=== PATIENT | male | born 1985 | race Caucasian/White ===

== ENCOUNTER 2021-03-24 21:21 | Emergency (ER) | payer OTHER, SELFPAY ==
[2021-03-24 21:28] VITALS: BP 158/97; PULSE 88; RESP 18; TEMP 36.8; O2SAT 97; BMI 29.8
--- NOTE | 2021-03-24 21:46 | W.ED.ABDPA2 ---
HPI - Abdominal Pain General: Chief Complaint: Abdominal Pain Stated Complaint: abd pain Time Seen by Provider: 03/24/21 21:37 Source: patient Mode of arrival: ambulatory Limitations: no limitations History of Present Illness: HPI narrative: 36-year-old male states has been having abdominal pain over the last 7 to 8 months. He states he had multiple ER visits back in September and had two CAT scans back in September and all the scans were normal. He states his PCP is recently tried to set him up with a referral to GI for EGD and colonoscopy. He states that over the last week his pain is worsened and has been constant nature. He states this is a diffuse cramping pain. Denies any vomiting diarrhea. Denies any worsening improving factors. Associated Symptoms: Denies chills, dysuria and fever(s) Review of Systems Const: Denies: fever(s), chills, body aches or change in appetite Eyes: Denies: blurry vision or eye discomfort ENMT: Denies: throat pain or dental pain Card: Denies: chest pain Resp: Denies: dyspnea GI: Reports: abdominal pain : Denies: dysuria Musc: Denies: neck pain or back pain Skin/Breast: Denies: rash Neuro: Denies: headache(s) Psych: Denies: depression Abdirahman/Lymph: Denies: easy bruising All/Imm: Denies: urticaria Physical Exam Const: COMMON NORMALS: no acute distress, patient oriented x3 and healthy appearing HENMT: COMMON NORMALS: normocephalic and atraumatic HEAD & SCALP: normocephalic and atraumatic Eye: COMMON NORMALS: Equal, round and reactive pupils present and EOMs intact bilaterally PUPIL: Yes Equal, round and reactive pupils present Neck/C-Spine: COMMON NORMALS: full ROM and supple Chest: COMMONS NORMALS: normal inspection of the chest and normal palpation of entire chest wall Resp: COMMON NORMALS: normal respiratory effort, No retractions, No use of accessory muscles and clear to auscultation bilaterally AUSCULTATION: clear to auscultation bilaterally Cardio: COMMON NORMALS: regular rate, regular rhythm and No murmurs present (Cardio) RATE: regular rate RHYTHM: regular rhythm GI: COMMON NORMALS: Normal to inspection, nondistended, normoactive bowel sounds present, Soft to palpation, non-tender and no masses PALPATION: Yes Soft to palpation Extremity: COMMON NORMALS: normal to inspection and full ROM Neuro: COMMON NORMALS: patient oriented x3, moves all extremities and no focal motor deficits Psych: COMMON NORMALS: mental status grossly normal, Normal thought process present and cooperative THOUGHT PROCESS: Normal thought process present Skin: COMMON NORMALS: no rashes or lesions noted and no wounds GENERAL SKIN EXAM: no rashes or lesions noted Course Vital Signs: Vital signs: Vital Signs Temperature 98.3 F 03/24/21 21:28 Pulse Rate 88 03/24/21 21:28 Respiratory Rate 18 03/24/21 21:28 Blood Pressure 158/97 03/24/21 21:28 Pulse Oximetry 97 03/24/21 21:28 MDM - Abdominal Pain MDM Narrative: Medical decision making narrative: Patient presents with abdominal pain with CT findings showing a possible ulcer. We will start him on erythromycin sulcal fate and Protonix. He is to follow-up with a surgeon and does need an EGD. Lab Data: Labs: Lab Results 03/24/21 03/24/21 Range/Units 22:30 22:30 WBC 9.3 (4.0-10.0) 10^3/ uL RBC 5.90 H (4.1-5.3) 10^6/u L Hgb 17.4 H (11.7-16.6) g/dL Hct 49.8 (42.0-52.0) % MCV 84.4 (80-94) fL MCH 29.5 (28.0-34.0) pg MCHC 34.9 (30.0-36.0) g/dL RDW 12.8 (12.1-15.1) % Plt Count 320 (130-400) 10^3/c mm MPV 10.4 (7.4-10.4) fL Neut % (Auto) 71.5 % Lymph % (Auto) 19.1 % [place] % (Auto) 7.4 % Eos % (Auto) 1.0 % Baso % (Auto) 0.6 % Neut # (Auto) 6.66 (1.8-7.7) 10^3/u L Lymph # (Auto) 1.8 (0.8-4.8) 10^3/u L [place] # (Auto) 0.7 (0.2-0.9) 10^3/u L Eos # (Auto) 0.1 (0.0-0.8) 10^3/u L Baso # (Auto) 0.1 (0.0-0.1) 10^3/u L Nucleated RBC % (a uto) 0 % Nucleated RBCs # 0.0 /100WBC Sodium 140 (136-145) mmol/L Potassium 4.5 (3.5-5.1) mmol/L Chloride 101 (98-107) mmol/L Carbon Dioxide 25 (22-29) mmol/L Anion Gap 18.5 (5-19) BUN 21 H (6-20) mg/dL Creatinine 1.0 (0.7-1.2) mg/dL GFR Calculation 85.0 L (90-130) mL/min Glucose 96 (65-115) mg/dL Calculated Osmolal ity 295 (285-295) mOsm/k g Calcium 10.5 (8.5-10.5) mg/dL Total Bilirubin 0.5 (0.15-1.2) mg/dL AST 18 (0-40) U/L ALT 24 (0-41) U/L Alkaline Phosphata se 116 (40-130) IU/L Total Protein 8.1 (6.6-8.7) g/dL Albumin 4.9 (3.5-5.2) g/dL Globulin 3.2 (1.3-4.6) g/dL Lipase 35 (13-60) U/L Imaging Data ^: CT Abd/Pel: Radiologist's impression: [address] [address] [address] Scan Report Signed Patient: Cory Caraballo Unit #: [id number] : 1985 Age/Sex: 36 / M ADM Date: 03/24/21 Loc: ER Room/Bed: Attending Dr: Ordering Provider/Ordering MD: Josafat Tai MD Date of Service: 03/24/21 Procedure(s): CT abdomen pelvis [facility] [address] Accession Number(s): [id number] Report Number: [id number] PROCEDURE INFORMATION: Exam: CT Abdomen And Pelvis Without Contrast Exam date and time: 03/24/2021 9:45 PM Age: 36 years old Clinical indication: Nausea; Abdominal pain; Generalized; Additional info: Abd pain TECHNIQUE: Imaging protocol: Computed tomography of the abdomen and pelvis without contrast. Radiation optimization: All CT scans at this facility use at least one of these dose optimization techniques: automated exposure control; mA and/or kV adjustment per patient size (includes targeted exams where dose is matched to clinical indication); or iterative reconstruction. COMPARISON: No relevant prior studies available. RADIATION DOSE METRICS: Total DLP (mGy-cm): 1292.55 FINDINGS: Liver: Normal. No mass. Gallbladder and bile ducts: Normal. No calcified stones. No ductal dilation. Pancreas: Normal. No ductal dilation. Spleen: Normal. No splenomegaly. Adrenal glands: Normal. No mass. Kidneys and ureters: Normal. No hydronephrosis. Stomach and bowel: Circumferential wall thickening in the 1st and 2nd portion of the duodenum with mild fat stranding. There is a small fluid collection with gas bubble within the thickened posteromedial wall of the 1st portion of the duodenum, suspicious for an ulceration. The stomach is unremarkable. The jejunum and ileum are normal. No obstruction. Appendix: The appendix is visualized and is normal. Intraperitoneal space: Unremarkable. No free air. No significant fluid collection. Vasculature: Unremarkable. No abdominal aortic aneurysm. Lymph nodes: Unremarkable. No enlarged lymph nodes. Urinary bladder: Unremarkable as visualized. Reproductive: Prostate calcification. Bones/joints: Unremarkable. No acute fracture. Soft tissues: Unremarkable. CT/CT abdomen pelvis wo con [id number] IMPRESSION: 1. Wall thickening of the proximal duodenum with suspected ulceration in the 1st portion of the duodenum. This most likely represents peptic ulcer disease. Infectious duodenitis is not excluded. Follow-up with endoscopy is suggested. Discharge Plan Discharge Patient Disposition: Home Clinical Impression: Abdominal pain Qualifiers: Abdominal location: epigastric Qualified Code(s): R10.13 - Epigastric pain Condition: Stable Prescriptions: New hydrocodone-acetaminophen 5-325 mg tablet 1 tab PO Q6H PRN (Reason: pain) Qty: 14 RF: 0 Protonix 40 mg tablet,delayed release (DR/EC) 40 mg PO DAILY Qty: 60 RF: 0 ondansetron 4 mg tablet,disintegrating 4 mg PO Q6H PRN (Reason: nausea and vomiting) Qty: 14 RF: 0 clarithromycin 500 mg tablet 500 mg PO BID 10 Days Qty: 20 RF: 0 sucralfate 1 gram tablet 1 g PO BID 28 Days Qty: 56 RF: 0 Discharge Orders: Discharge ED (Routine); Ordered 03/24/21 Ordered By: Josafat Tai Referrals: Jovi King MD [Physician] - 1-3 days Discharge Diet: Advance as tolerated Discharge Activity: Resume usual activity Patient Instructions: Abdominal Pain (ED), Opioid Safety Coding Level of Care Code ED 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
[2021-03-24] MEDS: HYDROmorphone 1 mg/mL INJ 1 mL IVP (22:36)
[2021-03-24] MEDS: ondansetron 2 mg/ML SDV 2 mL 4 MG IVP (22:36)
[2021-03-24] MEDS: sodium chloride 0.9% 1,000 ML 999 ML IV (22:37)
[2021-03-24 22:38] LABS: Basophils # 0.1 10^3/uL (0.0-0.1); Basophils % 0.6 %; Eosinophils # 0.1 10^3/uL (0.0-0.8); Hematocrit 49.8 % (42.0-52.0); Hemoglobin 17.4 g/dL (11.7-16.6); Lymphocytes # 1.8 10^3/uL (0.8-4.8); Lymphocytes % 19.1 %; Mean Corpuscular HGB Conc 34.9 g/dL (30.0-36.0); Mean Corpuscular Hemoglobin 29.5 pg (28.0-34.0); Mean Corpuscular Volume 84.4 fL (80-94); Mean Platelet Volume 10.4 fL (7.4-10.4); Monocytes # 0.7 10^3/uL (0.2-0.9); Monocytes % 7.4 %; Neutrophils # 6.66 10^3/uL (1.8-7.7); Neutrophils % 71.5 %; Nucleated Red Blood Cells % 0 %; Platelet Count 320 10^3/cmm (130-400); Red Cell Distribution Width 12.8 % (12.1-15.1); White Blood Count 9.3 10^3/uL (4.0-10.0)
[2021-03-24 22:51] LABS: Chloride 101 mmol/L (98-107); Potassium 4.5 mmol/L (3.5-5.1); Sodium 140 mmol/L (136-145)
[2021-03-24 23:03] LABS: Alanine Aminotransferase 24 U/L (0-41); Albumin Level 4.9 g/dL (3.5-5.2); Alkaline Phosphatase 116 IU/L (40-130); Anion Gap 18.5 (5-19); Aspartate Amino Transferase 18 U/L (0-40); Blood Urea Nitrogen 21 mg/dL (6-20); Calcium 10.5 mg/dL (8.5-10.5); Carbon Dioxide 25 mmol/L (22-29); Globulin 3.2 g/dL (1.3-4.6); Glucose 96 mg/dL (65-115); Lipase 35 U/L (13-60); Osmolality Calculated 295 mOsm/kg (285-295); Total Bilirubin 0.5 mg/dL (0.15-1.2); Total Protein 8.1 g/dL (6.6-8.7)
[2021-03-24] MEDS: lidocaine 2% viscous 15 ML, aluminum-mag hydrox-simethicon 30 ML, sucralfate oral liq 1 GM PO (23:32)
[2021-03-24 23:43] VITALS: BP 136/75; PULSE 84; RESP 16; TEMP 36.6; O2SAT 98
--- NOTE | 2021-03-25 08:20 | DCPLANNER ---
Addendum entered by Miya Win 03/25/21 08:31: Patient has [employer] insurance, comp field case manager emailed patients information to the PA so that authorization process could be started. Original Note: manager agency had message to schedule a follow up appointment for patient with general surgery for abd pain, possible ulcer. manager agency emailed patients information to both Lizzette and Elizabet at [facility] General Surgery. Patients information will be printed and reviewed. Clinic will call patient with appointment information.
--- NOTE | 2021-03-28 07:20 | DCPLANNER ---
Patient has a follow up appointment scheduled for , March 31, 2021 at 3:[address] King at [facility] General Surgery. Clinic will call patient with appointment information.
--- NOTE | 2021-05-02 07:58 | DCPLANNER ---
Patient had a follow up appointment scheduled for 03.31.[address] King at [facility] General Surgery - patient did not attend appointment.
== END 2021-03-24 23:46 | disposition home or self-care (01) ==
PROVIDERS: Emergency Provider Emergency Medicine
DX: R10.13 Epigastric pain (principal)
CPT/HCPCS: 74176; 80053; 83690; 85025; 96361; 96374; 96375; 99283; J1170; J2405; J7030

== ENCOUNTER 2021-03-25 16:54 | Inpatient (IN) | payer OTHER, SELFPAY ==
[2021-03-25 17:32] VITALS: BP 160/103; PULSE 85; RESP 18; TEMP 36.6; O2SAT 100; BMI 29.8
[2021-03-25] MEDS: lidocaine 2% viscous 15 ML, aluminum-mag hydrox-simethicon 30 ML, sucralfate oral liq 1 GM PO (18:32)
--- NOTE | 2021-03-25 19:08 | CTR_ITS ---
PROCEDURE INFORMATION: Exam: CT Abdomen And Pelvis Without Contrast Exam date and time: 03/25/2021 7:08 PM Age: 36 years old Clinical indication: Abdominal pain; Generalized; Additional info: Worsening abdominal pain with nausea TECHNIQUE: Imaging protocol: Computed tomography of the abdomen and pelvis without contrast. Sagittal and coronal reformatted images were created and reviewed. The patient was administered oral contrast. Radiation optimization: All CT scans at this facility use at least one of these dose optimization techniques: automated exposure control; mA and/or kV adjustment per patient size (includes targeted exams where dose is matched to clinical indication); or iterative reconstruction. COMPARISON: CT abdomen pelvis wo con [id number] 03/24/2021 9:54 PM RADIATION DOSE METRICS: Total DLP (mGy-cm): 1737.12 FINDINGS: Limitations: Evaluation of solid organs and vasculature is limited without intravenous contrast. Lungs: Visualized lungs are clear. Pleural spaces: No pleural effusion. Heart: Visualized portions of the heart are unremarkable. Liver: The liver is unremarkable. Gallbladder and bile ducts: The gallbladder is unremarkable. No biliary ductal dilatation. Pancreas: The pancreas is unremarkable. No pancreatic ductal dilatation. Spleen: The spleen is unremarkable. Adrenal glands: The right and left adrenal glands are unremarkable. Kidneys and ureters: The right and left kidneys are unremarkable. The right and left ureters are unremarkable. Stomach and bowel: Redemonstration of an ulcer in the duodenal bulb. There is oral contrast and fluid within the ulcer. Marked inflammation of the wall of the duodenal bulb that has mildly increased compared with the previous study. There is a focal defect in the posterior wall of the duodenal bulb that is better visualized compared with the previous study, concerning for a small, localized perforation (series 601, image 48, series 602, images 30 8-39, in series 2, image 27).There is also increasing inflammation around the duodenal bulb. The remainder of the small bowel is unremarkable. No acute abnormality in the stomach. Appendix: The appendix is visualized and is unremarkable. No findings to suggest acute appendicitis. Intraperitoneal space: No free intraperitoneal air. No ascites. No loculated fluid collections to suggest an abscess. Vasculature: No evidence for aortic aneurysm. No evidence for aortic aneurysm. Lymph nodes: No lymphadenopathy. Urinary bladder: Diffuse, mild wall thickening of the bladder. Reproductive: Stable nonspecific parenchymal calcifications in the prostate gland. Bones/joints: No acute fracture. Soft tissues: No acute abnormality in the extra-abdominal soft tissues. CT/CT abdomen pelvis wo con [id number] IMPRESSION: 1. Findings suspicious for a small, localized perforation of a duodenal bulb ulcer. Increasing inflammation around the duodenal bulb. 2. Diffuse, mild wall thickening of the bladder. In the correct clinical setting, this may suggest cystitis. Recommend correlation with laboratory findings. Alternatively, this may be secondary to chronic outlet obstruction. 3. Incidental/nonacute findings are listed in the report. Radiation Dose CTDIVOL = (mGy): DLP = 1737.12 (mGy-cm)
--- NOTE | 2021-03-25 19:12 | PC.NURSE ---
attempted to call report, call back pending
[2021-03-25 19:19] VITALS: BP 141/99; PULSE 90; RESP 18; O2SAT 97
[2021-03-25 19:31] LABS: Basophils # 0.1 10^3/uL (0.0-0.1); Basophils % 0.6 %; Eosinophils # 0.1 10^3/uL (0.0-0.8); Eosinophils % 0.7 %; Hematocrit 47.6 % (42.0-52.0); Hemoglobin 16.1 g/dL (11.7-16.6); Lymphocytes # 1.3 10^3/uL (0.8-4.8); Lymphocytes % 12.3 %; Mean Corpuscular HGB Conc 33.8 g/dL (30.0-36.0); Mean Corpuscular Hemoglobin 29.2 pg (28.0-34.0); Mean Corpuscular Volume 86.4 fL (80-94); Mean Platelet Volume 10.8 fL (7.4-10.4); Monocytes # 0.8 10^3/uL (0.2-0.9); Monocytes % 7.1 %; Neutrophils # 8.29 10^3/uL (1.8-7.7); Neutrophils % 78.9 %; Nucleated Red Blood Cells % 0 %; Platelet Count 300 10^3/cmm (130-400); Red Blood Count 5.51 10^6/uL (4.1-5.3); Red Cell Distribution Width 12.6 % (12.1-15.1); White Blood Count 10.5 10^3/uL (4.0-10.0)
[2021-03-25] MEDS: pantoprazole 40 mg SDV 80 MG IVP (19:33)
[2021-03-25 19:57] LABS: Lactate (Lactic Acid level) 1.2 mmol/L (0.5-2.2)
[2021-03-25 20:02] VITALS: BP 137/99; PULSE 90; RESP 16; O2SAT 98
[2021-03-25 20:04] LABS: Alanine Aminotransferase 22 U/L (0-41); Albumin Level 4.9 g/dL (3.5-5.2); Alkaline Phosphatase 113 IU/L (40-130); Anion Gap 16.3 (5-19); Aspartate Amino Transferase 21 U/L (0-40); Blood Urea Nitrogen 19 mg/dL (6-20); Calcium 9.5 mg/dL (8.5-10.5); Carbon Dioxide 28 mmol/L (22-29); Chloride 99 mmol/L (98-107); Globulin 2.5 g/dL (1.3-4.6); Glucose 102 mg/dL (65-115); Lipase 50 U/L (13-60); Osmolality Calculated 290 mOsm/kg (285-295); Potassium 4.3 mmol/L (3.5-5.1); Sodium 139 mmol/L (136-145); Total Bilirubin 0.6 mg/dL (0.15-1.2); Total Protein 7.4 g/dL (6.6-8.7)
[2021-03-25] MEDS: barium sulfate 450 mL Oral Susp PO (20:31)
[2021-03-25 21:18] VITALS: BP 141/91; PULSE 90; RESP 16; O2SAT 97
[2021-03-25] MEDS: pantoprazole 40 MG in sodium chloride 0.9% (plus) 100 ML 20 MG IV (21:52)
--- NOTE | 2021-03-25 21:57 | PC.NURSE ---
patient awared NPO, no acute distress noted.
[2021-03-25] MEDS: piperacillin-tazobactam 3.375 GM in sodium chloride 0.9% (plus) 50 ML IV (22:12)
[2021-03-25 22:14] VITALS: BP 136/86; PULSE 94; RESP 18; O2SAT 98
--- NOTE | 2021-03-25 22:52 | ED_ITS ---
HPI - Abdominal Pain General: Chief Complaint: Abdominal Pain Stated Complaint: ABD PAIN Time Seen by Provider: 03/25/21 17:45 Source: patient Mode of arrival: ambulatory Limitations: no limitations History of Present Illness: HPI narrative: This pleasant 36-year-old male presents to the emergency department with abdominal pain. He was here yesterday for the same complaints, at that time a CT scan done was concerning for a 2-week ago also. He was discharged home with a prescription for clarithromycin, pantoprazole, sucralfate, hydrocodone. The patient states that he took the medications but his pain has only continued to get worse so he comes into the emergency department to be evaluated. When I evaluated the patient he was doubled over in pain. Patient denies vomiting but endorses some nausea. No diarrhea, no urinary symptoms. He has been taking meloxicam for several years regularly. MD elicited complaint: abdominal pain Onset (ago): day(s) Pain Consistency: constant Location: Epigastric and Periumbilical Severity: severe Quality: stabbing Radiation: none Migration to: no migration Relieving factors: nothing Associated Symptoms: Reports dyspepsia and nausea; Denies anorexia, belching, bloating, change in bowel habits, change in stool character, chills, coffee ground emesis, constipation, GI cramping, diarrhea, dysuria, excessive flatus, fever(s), heartburn, hematochezia, hematuria, hematemesis, fecal incontinence, loose stools, melena, poor appetite, syncope and vomiting Review of Systems General: Reports: 10 or more systems reviewed and unremarkable except in HPI and below Const: Denies: fever(s) or chills Card: Denies: syncope GI: Reports: nausea; Denies: vomiting, hematemesis, coffee ground emesis, heartburn, diarrhea, constipation, bloating, GI cramping, belching, excessive flatus, fecal incontinence, change in bowel habits, change in stool character, hematochezia or melena : Denies: dysuria or hematuria Physical Exam Const: COMMON NORMALS: no acute distress, average body habitus, patient oriented x3, no limitations, healthy appearing, alert and well nourished HENMT: COMMON NORMALS: normocephalic, atraumatic and moist oral mucous membranes HEAD & SCALP: normocephalic and atraumatic Neck/C-Spine: COMMON NORMALS: no meningeal signs and no JVD Resp: COMMON NORMALS: normal respiratory effort, No retractions, No use of accessory muscles, clear to auscultation bilaterally and percussion normal AUSCULTATION: clear to auscultation bilaterally PERCUSSION: percussion normal Cardio: COMMON NORMALS: no JVD, regular rate, regular rhythm, S1 normal heart sound present, S2 normal heart sound present, No gallops present (Cardio), No clicks present (Cardio), No murmurs present (Cardio), No rub (Cardio) and Peripheral pulses 2+ throughout RATE: regular rate RHYTHM: regular rhythm HEART SOUNDS: S1 normal heart sound present and S2 normal heart sound present PERIPHERAL PULSES: Peripheral pulses 2+ throughout GI: COMMON NORMALS: Normal to inspection, nondistended, normoactive bowel sounds present, Soft to palpation, No hepatosplenomegaly present, no masses and no bruits PALPATION: Yes Soft to palpation, Yes Tenderness to palpation present (GI) (epigastric), Yes No hepatosplenomegaly present and Yes Rebound tenderness present Extremity: COMMON NORMALS: normal to inspection, full ROM, capillary refill normal, no calf tenderness and no pedal edema Neuro: COMMON NORMALS: patient oriented x3 SENSORIUM/ORIENTATION: Yes alert MENINGEAL SIGNS: Yes no meningeal signs Skin: COMMON NORMALS: no rashes or lesions noted, no wounds, turgor normal, no jaundice, no petechiae and no mottling GENERAL SKIN EXAM: no rashes or lesions noted and turgor normal Course Reevaluation(s): Reevaluation #1: Discussed his lab and imaging findings with him, also discussed my conversation with the surgeon with him. Explained that he has a small perforation and will be managed by the surgeon. We will admit him to the hospital. He voiced understanding and is in agreement with the plan. Time: 21:35 Consultations: Consultation #1: Discussed the patient with Dr. King surgeon electric motors salesperson. He kindly accepted the patient to his service. He wants the patient placed on n.p.o., IV Zosyn, IV fluids, sucralfate, and a Protonix drip. Time: 21:27 Vital Signs: Vital signs: Vital Signs Temperature 98.3 F 03/25/21 23:00 Pulse Rate 90 03/25/21 23:00 Respiratory Rate 16 03/25/21 23:00 Blood Pressure 134/82 03/25/21 23:00 Pulse Oximetry 98 03/25/21 23:00 MDM - Abdominal Pain MDM Narrative: Medical decision making narrative: 36-year-old male who was diagnosed with a duodenal ulcer yesterday and came in with worsening pain today. Evaluation in the ED is suggestive of a small perforation at the duodenal bulb. He is admitted to the hospital under the service of the surgeon for further evaluation and management. Patient remained stable throughout his ED stay. He did not appear to be septic. Medical Records: Attestation: I reviewed the patient's medical records. Lab Data: Attestation: I reviewed the patient's lab results. Labs: Lab Results 03/25/21 03/25/21 03/25/21 Range/Units 19:09 19:09 19:09 WBC 10.5 H (4.0-10.0) 10^3/ uL RBC 5.51 H (4.1-5.3) 10^6/u L Hgb 16.1 (11.7-16.6) g/dL Hct 47.6 (42.0-52.0) % MCV 86.4 (80-94) fL MCH 29.2 (28.0-34.0) pg MCHC 33.8 (30.0-36.0) g/dL RDW 12.6 (12.1-15.1) % Plt Count 300 (130-400) 10^3/c mm MPV 10.8 H (7.4-10.4) fL Neut % (Auto) 78.9 % Lymph % (Auto) 12.3 % [place] % (Auto) 7.1 % Eos % (Auto) 0.7 % Baso % (Auto) 0.6 % Neut # (Auto) 8.29 H (1.8-7.7) 10^3/u L Lymph # (Auto) 1.3 (0.8-4.8) 10^3/u L [place] # (Auto) 0.8 (0.2-0.9) 10^3/u L Eos # (Auto) 0.1 (0.0-0.8) 10^3/u L Baso # (Auto) 0.1 (0.0-0.1) 10^3/u L Nucleated RBC % (a uto) 0 % Nucleated RBCs # 0.0 /100WBC Sodium 139 (136-145) mmol/L Potassium 4.3 (3.5-5.1) mmol/L Chloride 99 (98-107) mmol/L Carbon Dioxide 28 (22-29) mmol/L Anion Gap 16.3 (5-19) BUN 19 (6-20) mg/dL Creatinine 0.9 (0.7-1.2) mg/dL GFR Calculation 96.0 (90-130) mL/min Glucose 102 (65-115) mg/dL Calculated Osmolal ity 290 (285-295) mOsm/k g Lactate 1.2 (0.5-2.2) mmol/L Calcium 9.5 (8.5-10.5) mg/dL Total Bilirubin 0.6 (0.15-1.2) mg/dL AST 21 (0-40) U/L ALT 22 (0-41) U/L Alkaline Phosphata se 113 (40-130) IU/L Total Protein 7.4 (6.6-8.7) g/dL Albumin 4.9 (3.5-5.2) g/dL Globulin 2.5 (1.3-4.6) g/dL Lipase 50 (13-60) U/L Imaging Data ^: CT Abd/Pel: Attestation: I personally reviewed and interpreted this imaging study as follows: Radiologist's impression: [address] [id number] Scan ReportSigned with Addenda Patient: Cory Caraballo JUndu #: [id number]: [id number]#:[id number]/Sex: 36 / MADM Date: 03/25/21Loc: ERRoom/Bed:Attending Dr: Ordering Provider/Ordering MD: Zack Leigh MD, [place] [facility] [place] Date of Service: 03/25/21 Procedure(s): CT abdomen pelvis wo con [id number] Accession Number(s): [id number] Report Number: [id number]/CT abdomen pelvis wo con [id number] THIS REPORT CONTAINS FINDINGS THAT MAY BE CRITICAL TO PATIENT CARE. The findings were verbally communicated via telephone conference with ZACK Cabral at 9:22 PM CDT on 03/25/2021. The findings were acknowledged and understood. Radiation Dose CTDIVOL = (mGy): DLP = 1737.12 (mGy-cm) Addendum Dictated By: Ayaka Rodriguez MDAddendum Signed By: Ayaka Rodriguez MDSigned Date/Time:03/25/215Addendum Cosigned By: PROCEDURE INFORMATION: Exam: CT Abdomen And Pelvis Without Contrast Exam date and time: 03/25/2021 7:08 PM Age: 36 years old Clinical indication: Abdominal pain; Generalized; Additional info: Worsening abdominal pain with nausea TECHNIQUE: Imaging protocol: Computed tomography of the abdomen and pelvis without contrast. Sagittal and coronal reformatted images were created and reviewed. The patient was administered oral contrast. Radiation optimization: All CT scans at this facility use at least one of these dose optimization techniques: automated exposure control; mA and/or kV adjustment per patient size (includes targeted exams where dose is matched to clinical indication); or iterative reconstruction. COMPARISON: CT abdomen pelvis wo con [id number] 03/24/2021 9:54 PM RADIATION DOSE METRICS: Total DLP (mGy-cm): 1737.12 FINDINGS: Limitations: Evaluation of solid organs and vasculature is limited without intravenous contrast. Lungs: Visualized lungs are clear. Pleural spaces: No pleural effusion. Heart: Visualized portions of the heart are unremarkable. Liver: The liver is unremarkable. Gallbladder and bile ducts: The gallbladder is unremarkable. No biliary ductal dilatation. Pancreas: The pancreas is unremarkable. No pancreatic ductal dilatation. Spleen: The spleen is unremarkable. Adrenal glands: The right and left adrenal glands are unremarkable. Kidneys and ureters: The right and left kidneys are unremarkable. The right and left ureters are unremarkable. Stomach and bowel: Redemonstration of an ulcer in the duodenal bulb. There is oral contrast and fluid within the ulcer. Marked inflammation of the wall of the duodenal bulb that has mildly increased compared with the previous study. There is a focal defect in the posterior wall of the duodenal bulb that is better visualized compared with the previous study, concerning for a small, localized perforation (series 601, image 48, series 602, images 30 8-39, in series 2, image 27).There is also increasing inflammation around the duodenal bulb. The remainder of the small bowel is unremarkable. No acute abnormality in the stomach. Appendix: The appendix is visualized and is unremarkable. No findings to suggest acute appendicitis. Intraperitoneal space: No free intraperitoneal air. No ascites. No loculated fluid collections to suggest an abscess. Vasculature: No evidence for aortic aneurysm. No evidence for aortic aneurysm. Lymph nodes: No lymphadenopathy. Urinary bladder: Diffuse, mild wall thickening of the bladder. Reproductive: Stable nonspecific parenchymal calcifications in the prostate gland. Bones/joints: No acute fracture. Soft tissues: No acute abnormality in the extra-abdominal soft tissues. CT/CT abdomen pelvis wo con [id number] IMPRESSION: 1. Findings suspicious for a small, localized perforation of a duodenal bulb ulcer. Increasing inflammation around the duodenal bulb. 2. Diffuse, mild wall thickening of the bladder. In the correct clinical setting, this may suggest cystitis. Recommend correlation with laboratory findings. Alternatively, this may be secondary to chronic outlet obstruction. 3. Incidental/nonacute findings are listed in the report. Radiation Dose CTDIVOL = (mGy): DLP = 1737.12 (mGy-cm) Dictated By:Ayaka Rodriguez MDSigned By:Ayaka Rodriguez MDSigned Date/Time:03/25/212119DD/ 16 Discharge Plan Discharge Patient Disposition: Admitted As Inpatient Admit Provider: Katherin Rocha Clinical Impression: Duodenal ulcer, perforated Condition: Stable Coding Level of Care Code ED Chucking Machine Set Up Operator Tool for Chg Fwd Exam Comprehensive
[2021-03-25 23:00] VITALS: BP 134/82; PULSE 90; RESP 16; TEMP 36.8; O2SAT 98
[2021-03-25] MEDS: lactated ringers 1,000 ML 125 ML IV (23:43)
[2021-03-25] MEDS: sucralfate 1 gm Tablet PO (23:48)
[2021-03-26] VITALS (8 sets, daily range): BP systolic 115–133; BP diastolic 66–86; PULSE 61–82; RESP 16–18; TEMP 36.3–36.9; O2SAT 96–98; BMI 29.8
[2021-03-26] MEDS: pantoprazole 40 MG in sodium chloride 0.9% (plus) 100 ML 20 MG IV ×5 (03:09→23:07)
--- NOTE | 2021-03-26 05:50 | PM.HP ---
Providers/Chief Complaint Admitting Physician: Katherin Rocha MD Chief Complaint: ABD PAIN History of Present Illness This is a pleasant 36 years old gentleman presents to the emergency department yesterday with worsening upper abdominal pain mostly sharp localized to the epigastric area without being referred patient reports that the pain started last Sunday, nothing seems to make it better or worse and on presentation he had a blood work that showed 10.5 WBC count, hematocrit of 47.6, platelets 300, serum lactic acid 1.2 and serum creatinine 0.9. Apparently the patient had presented on 03/24/2021 with similar clinical picture of abdominal pain and undergone a CT scan of the abdomen and pelvis that showed; 1. Wall thickening of the proximal duodenum with suspected ulceration in the 1st portion of the duodenum. This most likely represents peptic ulcer disease. Infectious duodenitis is not excluded. Follow-up with endoscopy is suggested. Apparently the patient came back to the ER with worsening abdominal pain the following day.On 03/25/2021 on the representation to the ER repeat CT scan was done with oral contrast that showed; 1. Findings suspicious for a small, localized perforation of a duodenal bulb ulcer. Increasing inflammation around the duodenal bulb. 2. Diffuse, mild wall thickening of the bladder. In the correct clinical setting, this may suggest cystitis. Recommend correlation with laboratory findings. Alternatively, this may be secondary to chronic outlet obstruction. 3. Incidental/nonacute findings are listed in the report. General surgery was consulted for further evaluation and care Patient reports to me that he had previous episodes of abdominal pain back in August 2020 and had gone to [facility] where a CT scan of the abdomen and pelvis was done and he was put on medicine and he was told that he had constipation and 2 days later he had the same episode had another CT scan and was treated that he is getting constipated, apparently the patient there after felt better till 24 March when he came to the ER at [facility]. Patient denies any fevers or chills nausea or vomiting or hematemesis. Also never had an upper endoscopy before or has been diagnosed with peptic ulcer disease. The patient reports that he has been on meloxicam for the past 15 years for his knees pain and discomfort. Patient denies any intake of PPI therapy or H2 blockers. Patient reports that he is a DNR Review of Systems General: Reports: 10 or more systems reviewed and unremarkable except in HPI and below Medications/Allergies Home Medications Medication Instructions Recorded Confirmed Last Taken Type clarithromycin 500 mg PO BID 10 Days #20 tab 03/24/21 03/25/21 03/25/21 Rx hydrocodone-acetaminophen 1 tab PO Q6H PRN #14 tab 03/24/21 03/25/21 03/25/21 Rx ondansetron 4 mg PO Q6H PRN #14 tab 03/24/21 03/25/21 03/25/21 Rx pantoprazole [Protonix] 40 mg PO DAILY #60 tab 03/24/21 03/25/21 03/25/21 Rx sucralfate 1 g PO BID 28 Days #56 tab 03/24/21 03/25/21 03/25/21 Rx cyclobenzaprine [Flexeril] 10 mg PO TID PRN 03/26/21 03/26/21 03/24/21 21:00 History quetiapine [Seroquel XR] 50 mg PO QPM 03/26/21 03/26/21 03/24/21 History Allergies Allergy/AdvReac Type Severity Reaction Status Date / Time contrast Allergy ALGY-Anaphy Uncoded 03/24/21 22:35 laxis PFSH Acute PFSH: Medical History FPC (current) use of non-steroidal anti-inflammatories (nsaid) Vitals/I&O/Wt Last Vital Signs Temp 97.4 F L 03/26/21 05:05 Pulse 61 03/26/21 05:05 Resp 16 03/26/21 05:05 BP 115/73 03/26/21 05:05 Pulse Ox 98 03/26/21 05:05 03/25/21 03/25/21 03/26/21 14:59 22:59 06:59 Intake Total 50 / 50 100 / 150 Output Total 250 / 250 Balance 50 / 50 -150 / -100 Weight last 48 hrs Weight 202 lb Physical Exam Const: COMMON NORMALS: no acute distress and patient oriented x3 GENERAL APPEARANCE: cooperative ORIENTATION/CONSCIOUSNESS: Yes awake, Yes oriented to person, Yes oriented to place and Yes oriented to time HENMT: COMMON NORMALS: normocephalic HEAD & SCALP: normocephalic Eye: COMMON NORMALS: Equal, round and reactive pupils present and no scleral icterus PUPIL: Yes Equal, round and reactive pupils present Lymph: LYMPHATIC: no lymphadenopathy noted Chest: COMMONS NORMALS: normal inspection of the chest Resp: COMMON NORMALS: normal respiratory effort and clear to auscultation bilaterally AUSCULTATION: clear to auscultation bilaterally Cardio: COMMON NORMALS: S1 normal heart sound present and S2 normal heart sound present; negative for No murmurs present (Cardio) HEART SOUNDS: S1 normal heart sound present and S2 normal heart sound present GI: COMMON NORMALS: Soft to palpation; negative for No hepatosplenomegaly present INSPECTION: Yes normal to inspection PALPATION: Yes Soft to palpation, No Firmness to palpation present (GI), No Tenderness to palpation present (GI), No Guarding due to palpation present (GI), No Rigid due to palpation and No No hepatosplenomegaly present Neuro: COMMON NORMALS: patient oriented x3 SENSORIUM/ORIENTATION: Yes oriented to person, Yes oriented to place and Yes oriented to time Psych: COMMON NORMALS: mental status grossly normal Skin: COMMON NORMALS: no rashes or lesions noted GENERAL SKIN EXAM: no rashes or lesions noted Data : 03/25/21 19:09 03/25/21 19:09 A&P Assessment and plan (1) Duodenal ulcer, perforated: Plan of care; After thorough history and physical examination and reviewing the chart and images of the CT scans of the abdomen and pelvis with my personal interpretation, I am not seeing any extravasation of contrast, likely is a small contained perforation that already sealed as the patient gives history of abdominal pain since last Sunday or so and the patient would benefit at this point from; N.p.o. status with IV fluid resuscitation PPI drip Broad-spectrum antibiotics in the form of Zosyn 3.375 mg IV every 8 hours Refrain from any NSAID products Nutrition consultation and will start the patient on PPI and Repeated physical examination Repeat a.m. labs All questions have been answered and all concerns have been addressed to patient's satisfaction. At 10:10 AM 03/26/2021 I did discuss further the CT scan images of both CT scans with Dr. Troy Tele Radilogist via the phone and he believes that at the ulcer area has mural thickening and no definite evidence of perforation with no extravasation of contrast likely that changes at the wall of the crater of the ulcer. Recommend to repeat CT scan with oral contrast as follow-up in few days depending on the patient's clinical progress. Status: Acute (2) FPC (current) use of non-steroidal anti-inflammatories (nsaid): Status: Inactive Attestations Medical Necessity Statement*: Patient will require inpatient hospitalization passing 2 midnights for antimicrobial therapy, repeated physical examination and peripheral parenteral nutrition. Time Spent in Patient Care: 16 - 35 minutes (>than 50% of time spent in counselling and/or direct pt care on unit). Coding Level of Care Code Acute Sawdust Drier for g Fwd Exam Comprehensive Diagnoses Duodenal ulcer, perforated K26.5 exterminator helper (current) use of non-steroidal anti-inflammatories (nsaid) Z79.1
[2021-03-26] MEDS: sucralfate 1 gm Tablet PO ×4 (06:24→23:07)
[2021-03-26] MEDS: piperacillin-tazobactam 3.375 GM in sodium chloride 0.9% (plus) 50 ML IV ×3 (06:48→21:14)
[2021-03-26] MEDS: lactated ringers 1,000 ML 125 ML IV ×2 (07:57→17:48)
[2021-03-26] MEDS: nicotine 7 mg Patch 1 PATCH TRANSDERMA (13:20)
[2021-03-26] MEDS: acetaminophen 325 mg Tablet 650 MG PO (17:49)
[2021-03-27] VITALS (10 sets, daily range): BP systolic 99–157; BP diastolic 59–93; PULSE 55–69; RESP 15–17; TEMP 36.3–36.9; O2SAT 96–99
[2021-03-27] MEDS: lactated ringers 1,000 ML 125 ML IV ×2 (01:22→09:20)
[2021-03-27] MEDS: pantoprazole 40 MG in sodium chloride 0.9% (plus) 100 ML 20 MG IV ×4 (03:49→18:09)
[2021-03-27 06:08] LABS: Basophils # 0.1 10^3/uL (0.0-0.1); Basophils % 0.9 %; Eosinophils # 0.2 10^3/uL (0.0-0.8); Eosinophils % 2.6 %; Hematocrit 42.5 % (42.0-52.0); Hemoglobin 14.3 g/dL (11.7-16.6); Lymphocytes # 1.7 10^3/uL (0.8-4.8); Lymphocytes % 25.7 %; Mean Corpuscular HGB Conc 33.6 g/dL (30.0-36.0); Mean Corpuscular Hemoglobin 29.4 pg (28.0-34.0); Mean Corpuscular Volume 87.3 fL (80-94); Mean Platelet Volume 10.9 fL (7.4-10.4); Monocytes # 0.6 10^3/uL (0.2-0.9); Monocytes % 9.1 %; Neutrophils # 3.97 10^3/uL (1.8-7.7); Neutrophils % 61.2 %; Nucleated Red Blood Cells % 0 %; Platelet Count 218 10^3/cmm (130-400); Red Blood Count 4.87 10^6/uL (4.1-5.3); Red Cell Distribution Width 12.4 % (12.1-15.1); White Blood Count 6.5 10^3/uL (4.0-10.0)
[2021-03-27] MEDS: sucralfate 1 gm Tablet PO ×3 (06:10→18:09)
[2021-03-27] MEDS: piperacillin-tazobactam 3.375 GM in sodium chloride 0.9% (plus) 50 ML IV ×3 (06:11→21:59)
--- NOTE | 2021-03-27 06:22 | P.PN_ITS ---
Subjective Subjective: Interval history: Patient overall feels well and denies any abdominal pain. No acute events overnight, maintained to have stable vital signs and good urine output.PPN started gradually per pharmacists recommendations. Medications: Reviewed: Yes Vitals/I&O/Wt Last Vital Signs Temp 98.0 F 03/27/21 04:00 Pulse 66 03/27/21 04:00 Resp 16 03/27/21 04:00 BP 145/86 03/27/21 04:00 Pulse Ox 98 03/27/21 04:00 03/26/21 03/26/21 03/27/21 14:59 22:59 06:59 Intake Total 1247 / 1247 1239.333 / 2486.333 1244.833 / 3731.166 Output Total 875 / 875 525 / 1400 Balance 1247 / 1247 364.333 / 1611.333 719.833 / 2331.166 Weight last 48 hrs Weight 202 lb Weight 202 lb Physical Exam Narrative: EXAM NARRATIVE: Patient is conscious alert oriented X3 BMI 30 Head and neck examination PERRLA no masses no cervical lymphadenopathy no jaundice Cardiac examination audible S1-S2 no murmurs no gallops no arrhythmias Chest is clear bilateral,abscence of Rhonchi or wheezes,no surgical emphysema Abdomen nontender nondistended soft no organomegaly guarding or rigidity/no signs of peritonitis Data : 03/27/21 05:20 03/27/21 05:20 A&P Assessment and plan (1) Duodenal ulcer, perforated: At this point it is clear that the patient did not have a perforated ulcer, as I did discuss further the images with Dr. Troy yesterday over the phone and all images showing duodenal ulcer without perforation or extravasation of contrast. For now we will continue the PPN and IV fluids We will start the patient on ice chips Encourage ambulation Patient had concerns about an autoimmune disease process which I do not believe it matches his current clinical scenario and I would defer further discussion with that regard with his primary care provider if there is further concern about his overall health, from a surgical standpoint of view patient has a complicated duodenal ulcer with surrounding inflammatory process with high risk of perforation and bleeding, based on the long-term use of NSAIDs for the past 15 years. Assurance and education All questions have been answered and all concerns have been addressed to patient's satisfaction. Status: Suspected Attestations Medical Necessity Statement*: Patient will require inpatient hospitalization passing 2 midnights for antimicrobial therapy, repeated physical examination and peripheral parenteral nutrition. Time Spent in Patient Care: 16 - 35 minutes (>than 50% of time spent in counselling and/or direct pt care on unit) . Coding Level of Care Code Acute Industrial Health And Safety Professor for g Fwd Diagnoses Duodenal ulcer, perforated K26.5
[2021-03-27 06:26] LABS: Alanine Aminotransferase 19 U/L (0-41); Albumin Level 3.5 g/dL (3.5-5.2); Alkaline Phosphatase 90 IU/L (40-130); Aspartate Amino Transferase 18 U/L (0-40); Blood Urea Nitrogen 12 mg/dL (6-20); Calcium 8.4 mg/dL (8.5-10.5); Carbon Dioxide 23 mmol/L (22-29); Chloride 106 mmol/L (98-107); Globulin 2.5 g/dL (1.3-4.6); Glucose 86 mg/dL (65-115); Osmolality Calculated 289 mOsm/kg (285-295); Sodium 140 mmol/L (136-145); Total Bilirubin 0.6 mg/dL (0.15-1.2)
[2021-03-27] MEDS: nicotine 7 mg Patch 1 PATCH TRANSDERMA (09:18)
--- NOTE | 2021-03-27 10:16 | PC.NUTR ---
NUTR PPN RECOMMENDATIONS: Start PPN at 20 ml/hr to initiate nutrition support. Goal of 60 ml/hr to approach kcal needs and pro needs. Increase by 10 ml Q8H as tolerated till goal rate is met. Free water per physician
--- NOTE | 2021-03-27 12:12 | PC.CHAP ---
Pastoral Care Encounter/Spiritual Assessment Type of Contact [] Declined commercial credit lead visit [] Patient/Family/Request visit [] Outpatient visit [] Follow-up visit [] Physician referral [] Code/Alert [XX] Routine visit [] Staff referral [] Actively dying [] Patient sleeping [] Family support [] [] Out of room [] Palliative care [] [] Receiving care in room [] Pre-surgical visit [] Trauma [] Long length of stay [] ICU visit [XX] Other: Relational/Emotional Strength [XX] Patient feels connected with others/family/visitors/staff [] Distress [] Loneliness/isolation [] Abandonment Spirituality of Patient [XX] Person of Ade [] Attends Methodist of their Ade [] Believes in Prayer [XX] Reads Bible or Restorationism materials [] There are Spiritual issues to be addressed Audit Mgr Interventions [] Prayer [XX] Active listening [XX] Non-anxious presence [] Spiritual/emotional support [] Crisis/trauma care [] Spiritual counseling [] Bereavement support [] Provided bereavement packet [] Provided Bible/devotional materials [] Provided toy/stuffed animal, coloring book to patient or family member [] Provided Communion [] Anointing/[place] [] Salvation [XX] Completed spiritual assessment [] Other: Impact on Illness or Injury [] Angry [] Fearful [] Anxious [] Often cries [] Exhaustion [] Unable to work [] Unable to attend orthodoxy [] Unable to walk/stand [] Unable to read [] Unable to drive [] Unable to eat/drink [] Unable to sleep [] Unable to be with family [] Patient intubated [] Other: Summary: Pt and family recently moved to the area in fall 2019. Pt has strong beliefs that combine some aspects of Catholic (not mainline islam) with following the Torah. Time spent with patient: 30
[2021-03-27] MEDS: lactated ringers 1,000 ML 50 ML IV (18:09)
[2021-03-28] VITALS (8 sets, daily range): BP systolic 112–152; BP diastolic 69–96; PULSE 57–79; RESP 16–18; TEMP 36.4–37.2; O2SAT 96–100
[2021-03-28] MEDS: sucralfate 1 gm Tablet PO ×5 (00:14→23:53)
[2021-03-28] MEDS: pantoprazole 40 MG in sodium chloride 0.9% (plus) 100 ML 20 MG IV ×3 (00:15→10:25)
--- NOTE | 2021-03-28 01:43 | PC.NURSE ---
Pt reports having some bright red blood on wet wipe after bm today. Moderate amount of bright red blood on wet wipe in the trash was seen by this Nurse. Will continue to monitor.
[2021-03-28 02:40] LABS: Basophils # 0.1 10^3/uL (0.0-0.1); Basophils % 1.2 %; Eosinophils # 0.2 10^3/uL (0.0-0.8); Eosinophils % 3.1 %; Hematocrit 38.9 % (42.0-52.0); Hemoglobin 13.7 g/dL (11.7-16.6); Lymphocytes # 1.6 10^3/uL (0.8-4.8); Lymphocytes % 28.5 %; Mean Corpuscular HGB Conc 35.2 g/dL (30.0-36.0); Mean Corpuscular Hemoglobin 29.7 pg (28.0-34.0); Mean Corpuscular Volume 84.2 fL (80-94); Mean Platelet Volume 10.5 fL (7.4-10.4); Monocytes # 0.5 10^3/uL (0.2-0.9); Monocytes % 8.4 %; Neutrophils # 3.35 10^3/uL (1.8-7.7); Neutrophils % 58.6 %; Nucleated Red Blood Cells % 0 %; Platelet Count 240 10^3/cmm (130-400); Red Blood Count 4.62 10^6/uL (4.1-5.3); Red Cell Distribution Width 12.3 % (12.1-15.1); White Blood Count 5.7 10^3/uL (4.0-10.0)
[2021-03-28 02:59] LABS: Anion Gap 14.8 (5-19); Blood Urea Nitrogen 11 mg/dL (6-20); Calcium 8.6 mg/dL (8.5-10.5); Carbon Dioxide 23 mmol/L (22-29); Chloride 105 mmol/L (98-107); Glucose 104 mg/dL (65-115); Osmolality Calculated 288 mOsm/kg (285-295); Potassium 3.8 mmol/L (3.5-5.1); Sodium 139 mmol/L (136-145)
[2021-03-28] MEDS: piperacillin-tazobactam 3.375 GM in sodium chloride 0.9% (plus) 50 ML IV ×3 (05:14→21:40)
--- NOTE | 2021-03-28 07:12 | P.PN_ITS ---
Subjective Subjective: Interval history: Patient overall feels better and denies any abdominal pain and he feels hungry. No acute events overnight. Medications: Reviewed: Yes Vitals/I&O/Wt Last Vital Signs Temp 97.9 F 03/28/21 04:00 Pulse 57 L 03/28/21 04:00 Resp 17 03/28/21 04:00 BP 112/74 03/28/21 04:00 Pulse Ox 97 03/28/21 04:00 03/27/21 03/28/21 03/28/21 22:59 06:59 14:59 Intake Total 1131.333 / 2373.166 1489.333 / 3862.499 Output Total 1775 / 3175 1075 / 4250 Balance -643.667 / -801.834 414.333 / -387.501 Weight last 48 hrs Weight 202 lb Physical Exam Narrative: EXAM NARRATIVE: Patient is conscious alert oriented X3 BMI 30 Head and neck examination PERRLA no masses no cervical lymphadenopathy no jaundice Cardiac examination audible S1-S2 no murmurs no gallops no arrhythmias Chest is clear bilateral,abscence of Rhonchi or wheezes,no surgical emphysema Abdomen nontender nondistended soft no organomegaly guarding or rigidity/no signs of peritonitis Data : 03/28/21 02:29 03/28/21 02:29 A&P Assessment and plan (1) Duodenal ulcer, perforated: will start the patient on clear liquid diet and follow on his clinical progress will continue the PPN and IV fluids Encourage ambulation Continue PPI drip for now IV antibiotic therapy Assurance and education All questions have been answered and all concerns have been addressed to patient's satisfaction. Status: Suspected Attestations Medical Necessity Statement*: Patient will require inpatient hospitalization passing 2 midnights for antimicrobial therapy, repeated physical examination and peripheral parenteral nutrition. Time Spent in Patient Care: 16 - 35 minutes (>than 50% of time spent in counselling and/or direct pt care on unit) . Coding Level of Care Code Acute Wall To Wall Carpet Installer for g Fwd Diagnoses Duodenal ulcer, perforated K26.5
[2021-03-28] MEDS: nicotine 7 mg Patch 1 PATCH TRANSDERMA (09:19)
[2021-03-28] MEDS: pantoprazole DR 40 mg Tablet PO (18:47)
[2021-03-28] MEDS: quetiapine 25 mg Tablet 50 MG PO (21:40)
[2021-03-29] VITALS: BP 139/86; PULSE 66; RESP 17; TEMP 36.6; O2SAT 99
[2021-03-29 04:00] VITALS: BP 121/74; PULSE 60; RESP 16; TEMP 37.1; O2SAT 97
[2021-03-29] MEDS: sucralfate 1 gm Tablet PO ×2 (05:53→11:24)
[2021-03-29] MEDS: piperacillin-tazobactam 3.375 GM in sodium chloride 0.9% (plus) 50 ML IV (05:53)
--- NOTE | 2021-03-29 06:36 | PM.PN ---
Subjective Subjective: Interval history: Patient appears to be doing well and tolerating p.o. intake. Passing gas and having nonbloody bowel movement. Medications: Reviewed: Yes Vitals/I&O/Wt Last Vital Signs Temp 98.8 F 03/29/21 04:00 Pulse 60 03/29/21 04:00 Resp 16 03/29/21 04:00 BP 121/74 03/29/21 04:00 Pulse Ox 97 03/29/21 04:00 03/28/21 03/28/21 03/29/21 14:59 22:59 06:59 Intake Total 2520.867 / 2520.867 2590 / 5110.867 175 / 5285.867 Output Total 1100 / 1100 700 / 1800 200 / 2000 Balance 1420.867 / 2537.207 8844 / 3310.867 -25 / 3285.867 Physical Exam Narrative: EXAM NARRATIVE: Patient is conscious alert oriented X3 BMI 30 Head and neck examination PERRLA no masses no cervical lymphadenopathy no jaundice Cardiac examination audible S1-S2 no murmurs no gallops no arrhythmias Chest is clear bilateral,abscence of Rhonchi or wheezes,no surgical emphysema Abdomen nontender nondistended soft no organomegaly guarding or rigidity/no signs of peritonitis Data : 03/28/21 02:29 03/28/21 02:29 A&P Assessment and plan (1) Duodenal ulcer, perforated: Will advance to full liquid Protonix switch to p.o. 40 mg twice daily DC PPN Potential discharge home today should the patient continues to do well Encourage ambulation Assurance and education All questions have been answered and all concerns have been addressed to patient's satisfaction. Status: Suspected Attestations Medical Necessity Statement*: Patient required inpatient hospitalization passing 2 midnights for antimicrobial therapy, repeated physical examination and peripheral parenteral nutrition. Pending discharge home today Time Spent in Patient Care: 16 - 35 minutes (>than 50% of time spent in counselling and/or direct pt care on unit). Coding Level of Care Code Acute Bee Tender for g Fwd Diagnoses Duodenal ulcer, perforated K26.5
[2021-03-29 07:16] VITALS: BP 119/83; PULSE 61; RESP 17; TEMP 36.4; O2SAT 98
[2021-03-29] MEDS: nicotine 7 mg Patch 1 PATCH TRANSDERMA (07:33)
[2021-03-29] MEDS: pantoprazole DR 40 mg Tablet PO (07:34)
[2021-03-29 12:00] VITALS: BP 130/86; PULSE 69; RESP 18; TEMP 36.8; O2SAT 100
--- NOTE | 2021-03-29 13:29 | PM.DCS ---
Discharge Providers Date of Admission: 03/25/21 21:44 Date of Discharge: March 29, 2021 Attending Provider at Admission: Katherin Rocha MD Attending Provider at Discharge: Jovi King MD Diagnoses at Discharge Discharge Diagnosis (1) Duodenal ulcer, perforated: Status: Suspected Reason for Visit Reason for Visit: ABD PAIN Hospital Course Hospital Course Patient overall responded well to conservative measurements and continued to have stable vital signs and continued to have good urine output patient has been on clear liquid diet advance to full liquid diet without complication, denies any abdominal pain and was placed initially on PPN for concern of potential duodenal ulcer being perforated but that was ruled out based on further evaluation of the CT scan and further discussion with the radiologist. Patient met the appropriate criteria for discharge home with the plan to follow-up with me at the office in 2 weeks to arrange for diagnostic EGD down the road. We will place the patient on triple therapy for empiric treatment of H. pylori infection. Physical Exam Narrative: EXAM NARRATIVE: Patient is conscious alert oriented X3 BMI 30 Head and neck examination PERRLA no masses no cervical lymphadenopathy no jaundice Cardiac examination audible S1-S2 no murmurs no gallops no arrhythmias Chest is clear bilateral,abscence of Rhonchi or wheezes,no surgical emphysema Abdomen nontender nondistended soft no organomegaly guarding or rigidity/no signs of peritonitis Discharge Data Data Completed and Pending: Completed Studies During Hospitalization Category Date Time Status CT abdomen pelvis wo con [id number] Urge nt Cat Scan 03/25/21 19:08 Completed Vitals: Last Vital Signs Temp 98.3 F 03/29/21 12:00 Pulse 69 03/29/21 12:00 Resp 18 03/29/21 12:00 BP 130/86 03/29/21 12:00 Pulse Ox 100 03/29/21 12:00 Discharge Plan Discharge Patient Disposition: Home Condition: Stable Prescriptions: New amoxicillin 875 mg tablet 875 mg PO BID Qty: 14 RF: 0 Continued hydrocodone-acetaminophen 5-325 mg tablet 1 tab PO Q6H PRN (Reason: pain) Qty: 14 RF: 0 ondansetron 4 mg tablet,disintegrating 4 mg PO Q6H PRN (Reason: nausea and vomiting) Qty: 14 RF: 0 cyclobenzaprine 10 mg Tablet 10 mg PO TID PRN (Reason: Muscle Spasm) RF: 0 Seroquel XR 50 mg Tablet Extended Release 24 Hr 50 mg PO QPM RF: 0 Changed clarithromycin 500 mg tablet 500 mg PO TID 14 Days Qty: 21 RF: 0 sucralfate 1 gram tablet 1 g PO Q6H 28 Days Qty: 56 RF: 2 Protonix 40 mg tablet,delayed release (DR/EC) 40 mg PO BIDWMEAL Qty: 60 RF: 2 Discharge Orders: Discharge Order (Routine); Ordered 03/29/21 Ordered By: Jovi King Referrals: Jovi King MD [Physician] - 04/21/21 2:35 pm (Return to surgery office in 2-week) Discharge Diet: Full LIquid Discharge Activity: Increase activity as tolerated Patient Instructions: Amoxicillin (By mouth), Acute Abdominal Pain (GEN), Opioid Safety Activity Restrictions/Additional Instructions: Raise the head of the bed 4-6 inches Frequent small meals through the day Avoid smoking or Chewing Tobacco Avoid excess coffee, tea, and other caffeinated beverages Avoid garments that fit tightly through the abdomen Avoid eating before going to sleep Avoid nonsteroidal anti-inflammatory drugs (NSAIDs) when possible Anti-reflux diet Anti-reflux medications as prescribed Emphasis on weight management Emphasis on hydration Full liquid diet today and tomorrow start soft GI gastric diet Discharge Attestations Time Spent in Discharge Care*: greater than 30 min Specific Discharge Activities: educating patient and educating and/or supporting family/caregiver Status at Discharge: Cognitive status at discharge: cognitively intact, Behavioral status at discharge: cooperative, Functional status at discharge: independent ambulation Overall status at discharge: patient is progressing back to baseline Quality Metrics Clinical Quality Measures During this hospital stay, did patient experience: None Coding Level of Care Code Acute [facility] note Diagnoses Duodenal ulcer, perforated K26.5
[2021-03-29 16:11] VITALS: BP 130/86; PULSE 69; RESP 18; TEMP 36.8; O2SAT 100
== END 2021-03-29 14:30 | disposition home or self-care (01) | DRG 384 ==
LOC: ER 22:01 → MEDSURG 03-26 00:11
PROVIDERS: Admitting Provider Internal Medicine; Emergency Provider Family Medicine; Visit Provider Surgery
DX: K26.3 Acute duodenal ulcer without hemorrhage or perforation (principal); Z79.1 Long term (current) use of non-steroidal anti-inflammatories (NSAID); Z79.891 Long term (current) use of opiate analgesic
CPT/HCPCS: 36415; 74176; 80048; 80053; 83605; 83690; 85025; 96361; 96374; 96376; 99285; C9113; J2543